=== PATIENT | female | born 1965 | race Caucasian/White ===

== ENCOUNTER 2016-06-08 13:55 | Emergency (ER) | payer SELFPAY ==
--- NOTE | 2016-06-08 14:20 | ER Document Report ---
ED Medical Screen (RME) - General Stated Complaint: FALL/BACK AND NECK PAIN Notes: 50 yo female c/o neck and back pain. pt slipped down several stairs a few days ago and tripped over dog. + hx/o chronic neck and back pain. + right leg radiculopathy. no bowel/bladder change. pt is new to area. Physical Exam - Vital signs Vitals: Temp Pulse Resp BP Pulse Ox 97.9 F 96 16 128/84 H 100 06/08/16 14:00 06/08/16 14:00 06/08/16 14:00 06/08/16 14:00 06/08/16 14:00 Course - Vital Signs Vital signs: Temp Pulse Resp BP Pulse Ox 97.9 F 96 16 128/84 H 100 06/08/16 14:00 06/08/16 14:00 06/08/16 14:00 06/08/16 14:00 06/08/16 14:00
--- NOTE | 2016-06-08 15:15 | ER Document Report ---
HPI - HPI Patient complains to provider of: fell few days ago, back hurts more than usual Onset: Other - not sure which day Onset/Duration: Worse Quality of pain: Achy Pain Level: 4 Context: 48 yo female moved here recently. No MD here yet. Slipped on stairs and fell onto her back making her chronic lumbar and cervical back arthrits worse. MR's in past, non surgical. No saddle anesthesia or radiculopathy. No fever. Associated Symptoms: None Exacerbated by: Sitting, Movement Relieved by: Denies Similar symptoms previously: Yes Recently seen / treated by doctor: No - ROS ROS below otherwise negative: Yes Systems Reviewed and Negative: Yes All other systems reviewed and negative - REPRODUCTIVE LMP: 05/30/ - DERM Skin Color: Normal Past Medical History - General Information source: Patient - Social History Smoking Status: Never Smoker Chew tobacco use (# tins/day): No Frequency of alcohol use: None Drug Abuse: None Lives with: Spouse/Significant other Family History: Reviewed & Not Pertinent Patient has suicidal ideation: No Patient has homicidal ideation: No Renal/ Medical History: Denies: Hx Peritoneal Dialysis Musculoskeltal Medical History: Reports Hx Arthritis - neck and low back Surgical Hx: Negative Vertical Provider Document - CONSTITUTIONAL Agree With Documented VS: Yes Exam Limitations: No Limitations General Appearance: No Apparent Distress - INFECTION CONTROL TRAVEL OUTSIDE OF THE [place] IN LAST 30 DAYS: No - HEENT HEENT: Normocephalic - NECK Neck: Supple - non tender c spine - RESPIRATORY Respiratory: Breath Sounds Normal, No Respiratory Distress O2 Sat by Pulse Oximetry: 100 - CARDIOVASCULAR Cardiovascular: Regular Rate, Regular Rhythm - GI/ABDOMEN Gastrointestinal: Abdomen Soft, Abdomen Non-Tender - BACK Back: Normal Inspection. negative: CVA Tenderness-Right, CVA Tenderness-Left - MUSCULOSKELETAL/EXTREMETIES Musculoskeletal/Extremeties: MAEW, FROM, Non-Tender - NEURO Level of Consciousness: Awake, Alert Motor/Sensory: No Motor Deficit, No Sensory Deficit Deep Tendon Reflexes: 2+ - sohail ankle and patellar - DERM Integumentary: Warm, Dry, No Rash Course - Re-evaluation Re-evalutation: 06/08/16 16:30 Urinalysis was normal. Refer patient to local M.D or her chronic pain. 06/08/16 16:30 - Vital Signs Vital signs: Temp Pulse Resp BP Pulse Ox 97.9 F 96 16 128/84 H 100 06/08/16 14:00 06/08/16 14:00 06/08/16 14:00 06/08/16 14:00 06/08/16 14:00 Discharge - Discharge Clinical Impression: exacerbation of chronic neck /back pain Fall Qualifiers: Encounter type: initial encounter Qualified Code(s): W19.XXXA - Unspecified fall, initial encounter Condition: Good Disposition: HOME, SELF-CARE Instructions: Arthritis ([facility]), Chronic Back Pain ([facility]), Low Back Pain ([facility]), Warm Packs ([facility]), Family Physicians / Practices, [facility] Additional Instructions: warm compress see pain management doctor to er if worse Prescriptions: Tramadol HCl [Ultram 50 mg Tablet] 50 mg PO ASDIR PRN #20 tablet PRN Reason: Referrals: JORDYN SHEPHERD MD [ACTIVE STAFF] - Follow up as needed
[2016-06-08 16:24] LABS: APPEARANCE,URINE CLEAR; BILIRUBIN,URINE NEGATIVE (NEGATIVE); GLUCOSE, URINE NEGATIVE (NEGATIVE); KETONES,URINE NEGATIVE (NEGATIVE); LEUKOCYTE ESTERASE,URINE NEGATIVE (NEGATIVE); NITRITE,URINE NEGATIVE (NEGATIVE); PROTEIN,URINE NEGATIVE (NEGATIVE); URINE SPECIFIC GRAVITY 1.006; UROBILINOGEN,URINE NEGATIVE mg/dL (<2.0)
[2016-06-08 17:05] VITALS: BP 133/90
== END 2016-06-08 16:55 | disposition home or self-care (01) ==
LOC: ER 13:55
DX: G89.29 Other chronic pain (principal); M54.9 Dorsalgia, unspecified; M54.2 Cervicalgia; W10.9XXA Fall (on) (from) unspecified stairs and steps, initial encounter; M47.9 Spondylosis, unspecified
CPT/HCPCS: 81001; 87086; 99283

== ENCOUNTER → 2016-06-20 | Outpatient (CLI) | payer OTHER ==
[2016-06-20 09:35] LABS: ABSOLUTE EOSINOPHILS # (AUTO) 0.1 10^3/uL (0.0-0.6); ABSOLUTE LYMPHOCYTES (AUTO) 1.1 10^3/uL (0.5-4.7); ABSOLUTE MONOCYTES (AUTO) 0.3 10^3/uL (0.1-1.4); ABSOLUTE NEUT (AUTO) 2.8 10^3/uL (1.7-8.2); BASOPHILS % (AUTO) 1.1 % (0-2); EOSINOPHILS % (AUTO) 3.1 % (0-6); HEMATOCRIT 32.2 % (36.0-47.0); HEMOGLOBIN 10.2 g/dL (12.0-15.5); HGB HCT DIFFERENCE -1.6; LYMPHOCYTES % (AUTO) 24.7 % (13-45); MEAN CORPUSCULAR HEMOGLOBIN 24.3 pg (27.0-33.4); MEAN CORPUSCULAR HGB CONC 31.7 g/dL (32.0-36.0); MEAN CORPUSCULAR VOLUME 77 fl (80-97); MONOCYTES % (AUTO) 6.5 % (3-13); RED BLOOD COUNT 4.21 10^6/uL (3.72-5.28); RED CELL DISTRIBUTION WIDTH 17.9 % (11.5-14.0); SEGMENTED NEUTROPHILS % (AUTO) 64.6 % (42-78); WHITE BLOOD COUNT 4.3 10^3/uL (4.0-10.5)
[2016-06-20 10:01] LABS: ALANINE AMINOTRANSFERASE 19 U/L (9-52); ALBUMIN 3.9 g/dL (3.5-5.0); ALKALINE PHOSPHATASE 54 U/L (38-126); ANION GAP 8 (5-19); ASPARTATE AMINO TRANSFERASE 16 U/L (14-36); BILIRUBIN,TOTAL 0.2 mg/dL (0.2-1.3); BLOOD UREA NITROGEN 13 mg/dL (7-20); C-REACTIVE PROTEIN 8.5 mg/L (<10.0); CALCIUM 9.3 mg/dL (8.4-10.2); CARBON DIOXIDE 26 mmol/L (22-30); CHLORIDE 105 mmol/L (98-107); CHOLESTEROL 160.08 mg/dL (0-200); CREATININE RESULT 0.82 mg/dL (0.52-1.25); Direct HDL 74 mg/dL (>40); GLUCOSE 104 mg/dL (75-110); POTASSIUM 4.8 mmol/L (3.6-5.0); SODIUM 139.4 mmol/L (137-145); TOTAL PROTEIN 6.8 g/dL (6.3-8.2); TRIGLYCERIDES 71 mg/dL (<150)
[2016-06-20 10:10] LABS: DIRECT LDL 71 mg/dL (<100)
[2016-06-20 10:18] LABS: ERYTHROCYTE SEDIMENTATION RATE 26 mm/hr (0-20)
== END ==
LOC: CCC 08:57
DX: M54.2 Cervicalgia (principal); M54.9 Dorsalgia, unspecified; F41.9 Anxiety disorder, unspecified; F32.9 Major depressive disorder, single episode, unspecified
CPT/HCPCS: 36415; 80053; 80061; 83036; 84443; 85025; 85652; 86038; 86140; 86430

== ENCOUNTER → 2016-06-23 | Outpatient (CLI) | payer OTHER ==
[2016-06-23 19:20] LABS: FERRITIN 6.11 ng/mL (6.2-137.0)
== END ==
LOC: CCC 15:54
DX: D50.9 Iron deficiency anemia, unspecified (principal)
CPT/HCPCS: 36415; 82728; 83540; 83550

== ENCOUNTER → 2016-07-13 | Outpatient (CLI) | payer OTHER | LOC: RAD 08:22 | DX: D50.9 Iron deficiency anemia, unspecified (principal) | CPT/HCPCS: 74249 ==

== ENCOUNTER 2016-07-22 10:13 | Emergency (ER) | payer OTHER ==
[2016-07-22] MEDS ORDERED: ACETAMINOPHEN 325 MG TABLET PO ONE (10:51)
--- NOTE | 2016-07-22 10:52 | ER Document Report ---
ED Medical Screen (RME) - General Stated Complaint: WEAKNESS Notes: Patient states she woke up this morning feeling weak, dizzy, and nauseous. States she does have a headache, pain level 3 out of 5. Patient has a history of anemia, ascites and depression, and chronic neck and back pain. Patient states she does have some nasal congestion. I have greeted and performed a rapid initial assessment of this patient. A comprehensive ED assessment and evaluation of the patient, analysis of test results and completion of the medical decision making process will be conducted by additional ED providers. TRAVEL OUTSIDE OF THE [place] IN LAST 30 DAYS: No - Related Data Allergies/Adverse Reactions: Sulfa (Sulfonamide Antibiotics) Allergy (Verified 07/22/16 10:47) Past Medical History Renal/ Medical History: Denies: Hx Peritoneal Dialysis Musculoskeltal Medical History: Reports Hx Arthritis - neck and low back Physical Exam - Vital signs Vitals: Temp Pulse Resp BP Pulse Ox 98.4 F 85 20 132/76 H 97 07/22/16 10:46 07/22/16 10:46 07/22/16 10:46 07/22/16 10:46 07/22/16 10:46 - Notes Notes: gait steady in triage, speech normal Course - Vital Signs Vital signs: Temp Pulse Resp BP Pulse Ox 98.4 F 85 20 132/76 H 97 07/22/16 10:46 07/22/16 10:46 07/22/16 10:46 07/22/16 10:46 07/22/16 10:46
--- NOTE | 2016-07-22 12:11 | ER Document Report ---
ED Dizziness/Weakness - General Mode of Arrival: Ambulatory Information source: Patient TRAVEL OUTSIDE OF THE [place] IN LAST 30 DAYS: No - HPI Patient complains to provider of: Dizziness, Weakness Onset: This morning - 829 Onset/Duration: Sudden, Persistent Associated symptoms: Headache, Nausea Exacerbated by: Movement of head <HUGO LANGLEY - Last Filed: 07/22/16 12:34> <IRLANDA BURRIS - Last Filed: 07/22/16 14:26> - General Chief Complaint: Dizziness Stated Complaint: WEAKNESS Notes: Patient is a 51-year-old female presenting to the emergency department concerned of dizziness and weakness onset upon waking up this morning at approximately 08:30. Patient also states that this is making her nauseous and she has a headache. Patient states "I just feel out of sorts." Patient has no other complaints at this time. (HUGO LANGLEY) - Related Data Allergies/Adverse Reactions: Sulfa (Sulfonamide Antibiotics) Allergy (Verified 07/22/16 10:47) Past Medical History - General Information source: Patient, [facility] Records - Social History Smoking Status: Never Smoker Chew tobacco use (# tins/day): No Frequency of alcohol use: None Drug Abuse: None Family History: Reviewed & Not Pertinent Patient has suicidal ideation: No Patient has homicidal ideation: No Renal/ Medical History: Denies: Hx Peritoneal Dialysis Musculoskeltal Medical History: Reports Hx Arthritis - neck and low back Psychiatric Medical History: Reports: Hx Depression Past Surgical History: Reports: Hx Section, Hx Cholecystectomy <HUGO LANGLEY - Last Filed: 07/22/16 12:34> Review of Systems - Review of Systems Constitutional: See HPI, Weakness EENT: No symptoms reported Cardiovascular: See HPI, Dizziness Respiratory: No symptoms reported Gastrointestinal: See HPI, Nausea Genitourinary: No symptoms reported Female Genitourinary: No symptoms reported Musculoskeletal: No symptoms reported Skin: No symptoms reported Hematologic/Lymphatic: No symptoms reported Neurological/Psychological: See HPI, Headaches -: Yes All other systems reviewed and negative <HUGO LANGLEY - Last Filed: 07/22/16 12:34> Physical Exam - General General appearance: Alert - HEENT Head: Normocephalic, Atraumatic Eyes: Normal, Other - Lateral gaze nystagmus. Dizziness made worse with head movement. Pupils: PERRL - Respiratory Respiratory status: No respiratory distress Chest status: Nontender Breath sounds: Normal Chest palpation: Normal - Cardiovascular Rhythm: Regular Heart sounds: Normal auscultation Murmur: No - Abdominal Inspection: Normal Bowel sounds: Normal Tenderness: Nontender - Back Back: Normal, Nontender - Extremities General upper extremity: Normal inspection, Nontender General lower extremity: Normal inspection, Nontender - Neurological Neuro grossly intact: Yes Cognition: Normal Orientation: AAOx4 Dahlgren Coma Scale Eye Opening: Spontaneous Dahlgren Coma Scale Verbal: Oriented Dandre Coma Scale Motor: Obeys Commands Dahlgren Coma Scale Total: 15 Speech: Normal - Psychological Associated symptoms: Normal affect, Normal mood - Skin Skin Temperature: Warm Skin Moisture: Dry Skin Color: Normal <HUGO LANGLEY - Last Filed: 07/22/16 12:34> Course - Laboratory Result Diagrams: 07/22/16 11:50 07/22/16 11:50 <HUGO LANGLEY - Last Filed: 07/22/16 12:34> - Laboratory Result Diagrams: 07/22/16 11:50 07/22/16 11:50 <IRLANDA BURRIS - Last Filed: 07/22/16 14:26> - Re-evaluation Re-evalutation: 07/22/16 14:24 Patient is much improved after the Antivert. The nystagmus has resolved. She is able to look up and down the back and forth quickly without provoking the dizziness that occurred earlier. (IRLANDA BURRIS) - Vital Signs Vital signs: Temp Pulse Resp BP Pulse Ox 98.4 F 85 20 132/76 H 97 07/22/16 10:46 07/22/16 11:15 07/22/16 11:15 07/22/16 11:15 07/22/16 11:15 - Laboratory Laboratory results interpreted by me: 07/22/16 07/22/16 11:50 12:15 WBC 3.4 L Hgb 11.2 L Hct 34.6 L MCV 78 L MCH 25.3 L RDW 21.2 H Urine Blood LARGE H Discharge <HUGO LANGLEY - Last Filed: 07/22/16 12:34> <IRLANDA BURRIS - Last Filed: 07/22/16 14:26> - Discharge Clinical Impression: Vertigo Condition: Stable Disposition: HOME, SELF-CARE Additional Instructions: Vertigo: You have experienced an episode of vertigo -- a whirling dizziness which may be accompanied by nausea and vomiting or staggering. Vertigo is often caused by an irritation of the inner ear, in which case it is called labyrinthitis. It can also be a symptom of a degenerating inner ear, nerve damage, or brain injury. Your physician has evaluated you to determine whether any further testing is necessary. Vertigo is often treated with dramamine or meclizine. These medications are helpful, but stronger medication may be needed if you are vomiting. Rest in bed. You should not drive or operate machinery until completely better. It may take one to three weeks for recovery. If there are new symptoms, such as decreased hearing or vision, severe headache, weakness or faintness, or confusion, call the physician. Prescriptions: Meclizine HCl [Antivert 25 mg Tablet] 25 mg PO TID PRN #25 tablet PRN Reason: Scribe Attestation: 07/22/16 14:26 I personally performed the services described in the documentation, reviewed and edited the documentation which was dictated to the scribe in my presence, and it accurately records my words and actions. (IRLANDA BURRIS) Scribe Documentation - Scribe Written by Leann:: Hugo Langley 07/22/2016 1211 acting as scribe for :: Adam <HUGO LANGLEY - Last Filed: 07/22/16 12:34>
[2016-07-22 12:23] LABS: ABSOLUTE EOSINOPHILS # (AUTO) 0.1 10^3/uL (0.0-0.6); ABSOLUTE MONOCYTES (AUTO) 0.3 10^3/uL (0.1-1.4); BASOPHILS % (AUTO) 0.9 % (0-2); EOSINOPHILS % (AUTO) 3.1 % (0-6); HEMATOCRIT 34.6 % (36.0-47.0); HEMOGLOBIN 11.2 g/dL (12.0-15.5); MEAN CORPUSCULAR HEMOGLOBIN 25.3 pg (27.0-33.4); MEAN CORPUSCULAR HGB CONC 32.3 g/dL (32.0-36.0); MEAN CORPUSCULAR VOLUME 78 fl (80-97); MONOCYTES % (AUTO) 8.5 % (3-13); RED BLOOD COUNT 4.44 10^6/uL (3.72-5.28); RED CELL DISTRIBUTION WIDTH 21.2 % (11.5-14.0); SEGMENTED NEUTROPHILS % (AUTO) 57.5 % (42-78); WHITE BLOOD COUNT 3.4 10^3/uL (4.0-10.5)
[2016-07-22] MEDS ORDERED: MECLIZINE HCL 25 MG TABLET PO ONE (12:33)
[2016-07-22 12:41] LABS: AMORPHOUS SEDIMENT,URINE 1+ /HPF; APPEARANCE,URINE CLOUDY; BILIRUBIN,URINE NEGATIVE (NEGATIVE); GLUCOSE, URINE NEGATIVE (NEGATIVE); KETONES,URINE NEGATIVE (NEGATIVE); LEUKOCYTE ESTERASE,URINE NEGATIVE (NEGATIVE); NITRITE,URINE NEGATIVE (NEGATIVE); PROTEIN,URINE NEGATIVE (NEGATIVE); URINE SPECIFIC GRAVITY 1.011; UROBILINOGEN,URINE NEGATIVE mg/dL (<2.0)
[2016-07-22 12:48] LABS: ALANINE AMINOTRANSFERASE 22 U/L (9-52); ALKALINE PHOSPHATASE 70 U/L (38-126); ANION GAP 10 (5-19); ASPARTATE AMINO TRANSFERASE 16 U/L (14-36); BILIRUBIN,DIRECT 0.1 mg/dL (0.0-0.4); BILIRUBIN,TOTAL 0.2 mg/dL (0.2-1.3); BLOOD UREA NITROGEN 13 mg/dL (7-20); CALCIUM 9.8 mg/dL (8.4-10.2); CARBON DIOXIDE 30 mmol/L (22-30); CHLORIDE 101 mmol/L (98-107); CREATININE RESULT 0.71 mg/dL (0.52-1.25); GLUCOSE 96 mg/dL (75-110); LIPASE 122.3 U/L (23-300); POTASSIUM 4.5 mmol/L (3.6-5.0); SODIUM 141.2 mmol/L (137-145); TOTAL PROTEIN 6.6 g/dL (6.3-8.2)
[2016-07-22 14:59] VITALS: BP 111/72
== END 2016-07-22 15:02 | disposition home or self-care (01) ==
LOC: ER 10:13
DX: H55.00 Unspecified nystagmus (principal); R42 Dizziness and giddiness; R53.1 Weakness; R11.0 Nausea; R51 Headache; Z88.2 Allergy status to sulfonamides
CPT/HCPCS: 36415; 80053; 81001; 83690; 84702; 85025; 99283

== ENCOUNTER → 2016-08-10 | Outpatient (CLI) | payer OTHER | LOC: WI 09:19 | DX: Z12.31 Encounter for screening mammogram for malignant neoplasm of breast (principal) | CPT/HCPCS: 77067; G0202 ==

== ENCOUNTER → 2016-10-26 | Outpatient (CLI) | payer OTHER ==
[2016-10-26 17:09] LABS: ABSOLUTE EOSINOPHILS # (AUTO) 0.2 10^3/uL (0.0-0.6); ABSOLUTE LYMPHOCYTES (AUTO) 1.4 10^3/uL (0.5-4.7); ABSOLUTE MONOCYTES (AUTO) 0.4 10^3/uL (0.1-1.4); ABSOLUTE NEUT (AUTO) 3.7 10^3/uL (1.7-8.2); BASOPHILS % (AUTO) 0.6 % (0-2); EOSINOPHILS % (AUTO) 2.7 % (0-6); HEMATOCRIT 39.4 % (36.0-47.0); HGB HCT DIFFERENCE -0.4; LYMPHOCYTES % (AUTO) 24.9 % (13-45); MEAN CORPUSCULAR HEMOGLOBIN 28.3 pg (27.0-33.4); MEAN CORPUSCULAR HGB CONC 32.9 g/dL (32.0-36.0); MEAN CORPUSCULAR VOLUME 86 fl (80-97); MONOCYTES % (AUTO) 7.3 % (3-13); RED BLOOD COUNT 4.59 10^6/uL (3.72-5.28); RED CELL DISTRIBUTION WIDTH 14.9 % (11.5-14.0); SEGMENTED NEUTROPHILS % (AUTO) 64.5 % (42-78); WHITE BLOOD COUNT 5.7 10^3/uL (4.0-10.5)
== END ==
LOC: CCC 16:19
DX: D50.9 Iron deficiency anemia, unspecified (principal)
CPT/HCPCS: 36415; 82728; 83540; 83550; 85025

== ENCOUNTER → 2016-12-14 | Outpatient (CLI) | payer OTHER ==
--- NOTE | 2016-12-14 15:15 | RADIOLOGY REPORT (SQ) ---
EXAM DESCRIPTION: HIP RIGHT AP/LATERAL COMPLETED DATE/TIME: 12/14/2016 1:06 pm REASON FOR STUDY: RIGHT HIP PAIN (M25.551) M25.551 PAIN IN RIGHT HIP COMPARISON: None. NUMBER OF VIEWS: Two views. TECHNIQUE: AP pelvis and additional frog-leg view of the right hip. LIMITATIONS: None. FINDINGS: MINERALIZATION: Normal. RIGHT HIP: No fracture or dislocation. No worrisome bone lesions. No significant hip joint space na rrowing. Very mild acetabular rim bony spurring. LEFT HIP: No fracture or dislocation. No worrisome bone lesions. No significant left hip joint spac e narrowing. Mild acetabular rim bony spurring. PUBIS AND ISCHIUM: No fracture. PELVIS: No fracture. SACRUM: No fracture or dislocation. No worrisome bone lesions. LOWER LUMBAR SPINE: Lower lumbar facet arthropathy at L4-5 and L5-S1 SOFT TISSUES: No findings. OTHER: No other significant finding. IMPRESSION: No acute fracture. No high-grade joint space narrowing or bulky bony spurring right hip TECHNICAL DOCUMENTATION: JOB ID: [id number]- All Rights Reserved
== END ==
LOC: RAD 12:31
DX: M25.551 Pain in right hip (principal)

== ENCOUNTER → 2017-03-20 | Outpatient (CLI) | payer OTHER ==
--- NOTE | 2017-03-20 13:26 | RADIOLOGY REPORT (SQ) ---
EXAM DESCRIPTION: MRIRLJ WO COMPLETED DATE/TIME: 03/20/2017 10:49 am REASON FOR STUDY: PERSISTENT R HIP PAIN COMPARISON: Radiographs from November. TECHNIQUE: Noncontrast multiplanar MR imaging. Sequences include wide field of view pelvis and focu sed hip of interest. Fat sensitive, water sensitive, and cartilage sensitive sequences. Specific hip of interest: Right LIMITATIONS: None. FINDINGS: MARROW SIGNAL: Normal, no evidence of replacement, occult fracture or suspicious bone lesi on in the visualized lumbar spine, pelvis and proximal femurs. SPECIFIC HIP OF INTEREST: No effusion. Appropriate acetabular coverage. Normal sphericity of the fem oral head. No avascular necrosis or reactive marrow changes. Small bone island in the posterior diego tabulum. No suspicious lesions. No focal hyaline cartilage defects or subchondral cysts appreciated . No bulky osteophytes suspect tear of the superior labrum. No significant paralabral cyst formatio n. No regional mass, bursitis or muscle tear. OPPOSITE HIP: No evidence of effusion or lesion. Joint space relatively preserved on non dedicated e valuation. Small hyperintense T2 probable cyst along the proximal vastus muscle. Suspect a tiny erika glion here. No significant muscle tear or bursitis detected. REMAINDER OF THE OSSEOUS PELVIS: SI joints normal. Symphasis pubis intact. No Avulsion injury evide nt. INTRA- AND EXTRAPELVIC SOFT TISSUES: Numerous nabothian cysts related to the cervix. No suspicious p elvic mass or fluid. Bladder looks normal. No inguinal adenopathy or hernia. IMPRESSION: 1. Suspect right hip labral tear. Right hip otherwise looks relatively intact.
== END ==
LOC: RAD 09:59
DX: M25.551 Pain in right hip (principal)

== ENCOUNTER → 2017-08-08 | Outpatient (CLI) | payer OTHER ==
[2017-08-08 11:24] LABS: ABSOLUTE EOSINOPHILS # (AUTO) 0.2 10^3/uL (0.0-0.6); ABSOLUTE LYMPHOCYTES (AUTO) 1.3 10^3/uL (0.5-4.7); ABSOLUTE MONOCYTES (AUTO) 0.3 10^3/uL (0.1-1.4); ABSOLUTE NEUT (AUTO) 4.1 10^3/uL (1.7-8.2); BASOPHILS % (AUTO) 0.6 % (0-2); EOSINOPHILS % (AUTO) 3.7 % (0-6); HEMATOCRIT 38.8 % (36.0-47.0); HEMOGLOBIN 12.7 g/dL (12.0-15.5); MEAN CORPUSCULAR HEMOGLOBIN 27.5 pg (27.0-33.4); MEAN CORPUSCULAR HGB CONC 32.7 g/dL (32.0-36.0); MEAN CORPUSCULAR VOLUME 84 fl (80-97); MONOCYTES % (AUTO) 5.4 % (3-13); PLATELET COUNT 308 10^3/uL (150-450); RED BLOOD COUNT 4.62 10^6/uL (3.72-5.28); RED CELL DISTRIBUTION WIDTH 15.5 % (11.5-14.0); SEGMENTED NEUTROPHILS % (AUTO) 69.3 % (42-78); TOTAL CELLS COUNTED % (AUTO) 100 %
== END ==
LOC: OD 10:46
DX: N92.4 Excessive bleeding in the premenopausal period (principal); Z86.2 Personal history of diseases of the blood and blood-forming organs and certain disorders involving the immune mechanism
CPT/HCPCS: 36415; 85025

== ENCOUNTER → 2017-08-17 | Outpatient (CLI) | payer OTHER ==
--- NOTE | 2017-08-17 12:35 | RADIOLOGY REPORT (SQ) ---
EXAM DESCRIPTION: U/S NON-OB PELVIS TV W/O DOP COMPLETED DATE/TIME: 08/17/2017 10:59 am REASON FOR STUDY: N92.4 EXCESSIVE BLEEDING IN THE PREMENOPAUSAL PERIOD N92.4 EXCESSIVE BLEEDING IN THE PREMENOPAUSAL PERIOD COMPARISON: None. TECHNIQUE: Dynamic and static grayscale images acquired of the pelvis via transvaginal approach and recorded on PACS. Additional selected color Doppler and spectral images recorded. LIMITATIONS: None. FINDINGS: UTERUS: There is the appearance of a 5.2 x 4.2 x 4.1 cm fundal uterine fibroid. ENDOMETRIAL STRIPE: Not able to be seen. CERVIX: 3 cm. Nabothian cysts are present. RIGHT ADNEXUM: No abnormal masses. RIGHT OVARY AND DOPPLER: Ovary not seen. . LEFT ADNEXUM: No abnormal masses. LEFT OVARY AND DOPPLER: Ovary not seen. . FREE FLUID: None noted. OTHER: No other significant finding. MEASUREMENTS: UTERUS: 11 x 5.3 x 4.2 cm. ENDOMETRIAL STRIPE: Not seen. RIGHT OVARY: Not seen. LEFT OVARY: Not seen. IMPRESSION: Uterine fibroid. Nabothian cysts. TECHNICAL DOCUMENTATION: JOB ID: [id number] [employer]- All Rights Reserved Reading location - IP/workstation name: [email or web address]
== END ==
LOC: WI 11:19
DX: N92.4 Excessive bleeding in the premenopausal period (principal); D25.9 Leiomyoma of uterus, unspecified; N88.8 Other specified noninflammatory disorders of cervix uteri
CPT/HCPCS: 76830

== ENCOUNTER → 2017-12-29 | Outpatient (CLI) | payer OTHER ==
[2017-12-29 11:40] LABS: ABSOLUTE EOSINOPHILS # (AUTO) 0.2 10^3/uL (0.0-0.6); ABSOLUTE LYMPHOCYTES (AUTO) 1.1 10^3/uL (0.5-4.7); ABSOLUTE MONOCYTES (AUTO) 0.2 10^3/uL (0.1-1.4); ABSOLUTE NEUT (AUTO) 3.9 10^3/uL (1.7-8.2); BASOPHILS % (AUTO) 0.8 % (0-2); EOSINOPHILS % (AUTO) 3.7 % (0-6); HEMATOCRIT 39.6 % (36.0-47.0); LYMPHOCYTES % (AUTO) 20.2 % (13-45); MEAN CORPUSCULAR HEMOGLOBIN 27.2 pg (27.0-33.4); MEAN CORPUSCULAR HGB CONC 32.7 g/dL (32.0-36.0); MEAN CORPUSCULAR VOLUME 83 fl (80-97); MONOCYTES % (AUTO) 4.1 % (3-13); PLATELET COUNT 361 10^3/uL (150-450); RED BLOOD COUNT 4.76 10^6/uL (3.72-5.28); RED CELL DISTRIBUTION WIDTH 15.7 % (11.5-14.0); SEGMENTED NEUTROPHILS % (AUTO) 71.2 % (42-78); TOTAL CELLS COUNTED % (AUTO) 100 %; WHITE BLOOD COUNT 5.5 10^3/uL (4.0-10.5)
[2017-12-29 12:10] LABS: ALANINE AMINOTRANSFERASE 23 U/L (9-52); ALBUMIN 4.5 g/dL (3.5-5.0); ALKALINE PHOSPHATASE 89 U/L (38-126); ANION GAP 11 (5-19); ASPARTATE AMINO TRANSFERASE 20 U/L (14-36); BILIRUBIN,DIRECT 0.3 mg/dL (0.0-0.4); BILIRUBIN,TOTAL 0.6 mg/dL (0.2-1.3); BLOOD UREA NITROGEN 12 mg/dL (7-20); CALCIUM 9.6 mg/dL (8.4-10.2); CARBON DIOXIDE 25 mmol/L (22-30); CHLORIDE 102 mmol/L (98-107); CHOLESTEROL 204.63 mg/dL (0-200); GLUCOSE 95 mg/dL (75-110); POTASSIUM 4.4 mmol/L (3.6-5.0); SODIUM 138.4 mmol/L (137-145); TOTAL PROTEIN 7.8 g/dL (6.3-8.2); TRIGLYCERIDES 78 mg/dL (<150)
[2017-12-29 12:21] LABS: DIRECT LDL 94 mg/dL (<100)
== END ==
LOC: CCC 10:24
DX: Z13.9 Encounter for screening, unspecified (principal)
CPT/HCPCS: 36415; 80053; 80061; 83036; 84443; 85025

== ENCOUNTER → 2018-03-20 | Outpatient (CLI) | payer OTHER ==
[2018-03-20 15:57] LABS: FREE T3 3.15 pg/mL (2.77-5.27); FREE T4 (FREE THYROXINE) 0.83 ng/dL (0.78-2.19)
[2018-03-20 16:10] LABS: THYROID STIMULATING HORMONE 5.17 uIU/mL (0.47-4.68)
== END ==
LOC: CCC 14:31
DX: E03.9 Hypothyroidism, unspecified (principal)
CPT/HCPCS: 36415; 84439; 84443; 84481

== ENCOUNTER → 2018-10-01 | Outpatient (CLI) | payer OTHER ==
[2018-10-01 12:14] LABS: FREE T3 4.09 pg/mL (2.77-5.27); FREE T4 (FREE THYROXINE) 0.84 ng/dL (0.78-2.19)
[2018-10-01 12:27] LABS: THYROID STIMULATING HORMONE 11.7 uIU/mL (0.47-4.68)
== END ==
LOC: CCC 10:31
DX: R94.6 Abnormal results of thyroid function studies (principal)
CPT/HCPCS: 36415; 84439; 84443; 84481

== ENCOUNTER → 2018-11-07 | Outpatient (CLI) | payer OTHER ==
--- NOTE | 2018-11-07 16:23 | RADIOLOGY REPORT (SQ) ---
EXAM DESCRIPTION: U/S THYROID/SFT TISS HD NECK COMPLETED DATE/TIME: 11/07/2018 3:39 pm REASON FOR STUDY: E03.9 HYPOTHYROIDISM, UNSPECIFIED E03.9 HYPOTHYROIDISM, UNSPECIFIED COMPARISON: None. TECHNIQUE: Dynamic and static torre-scale images acquired of the thyroid gland. Selected additional c olor/power Doppler images recorded. All images stored to PACS. LIMITATIONS: None. FINDINGS: RIGHT LOBE: Normal size. Heterogeneous echotexture. 9 x 11 x 7 mm hypoechoic nodule, wid er than tall. No calcifications. LEFT LOBE: Normal size. Homogeneous echotexture. No cystic or solid masses. ISTHMUS: Normal size. Homogeneous echotexture. No cystic or solid masses. OTHER: No other significant finding. IMPRESSION: Diffusely heterogeneous gland. 11 mm solid nodule right lobe. Low suspicion. TECHNICAL DOCUMENTATION: JOB ID: [id number] [employer]- All Rights Reserved Reading location - IP/workstation name: [email or web address]
== END ==
LOC: RAD 15:02
DX: E06.3 Autoimmune thyroiditis (principal); E03.9 Hypothyroidism, unspecified
CPT/HCPCS: 76536

== ENCOUNTER → 2018-12-19 | Outpatient (CLI) | payer OTHER | LOC: CCC 07:43 | DX: E05.90 Thyrotoxicosis, unspecified without thyrotoxic crisis or storm (principal) | CPT/HCPCS: 36415; 84443 ==

== ENCOUNTER 2019-02-21 20:14 | Emergency (ER) | payer OTHER ==
--- NOTE | 2019-02-21 20:48 | ER Document Report ---
ED Medical Screen (RME) - General Chief Complaint: Fall Stated Complaint: RIGHT SHOULDER/KNEE PAIN Time Seen by Provider: 02/21/19 20:44 Primary Care Provider: CHRIS CURRY [Primary Care Provider] - Follow up as needed Mode of Arrival: Ambulatory Information source: Patient Notes: 53-year-old female presented to ED for pain in her right shoulder. She states she fell one day last week but she is not sure which day. She states she tried to catch herself with her hand and landed on the hand injuring her shoulder. She says she has chronic pain in this shoulder due to arthritis in her neck and 3 pinched nerves. She states the pain always goes down into her hand. She states since she fell last week that it feels like her shoulder is slipping out of the joint. She has the pain in her shoulder down her hand. Patient states she took some tramadol about 2:00 it would like Tylenol at this time. I have greeted and performed a rapid initial assessment of this patient. A comprehensive ED assessment and evaluation of the patient, analysis of test results and completion of medical decision making process will be conducted by an additional ED providers. TRAVEL OUTSIDE OF THE [place] IN LAST 30 DAYS: No - Related Data Allergies/Adverse Reactions: Sulfa (Sulfonamide Antibiotics) Allergy (Verified 02/21/19 20:36) Past Medical History Renal/ Medical History: Denies: Hx Peritoneal Dialysis Musculoskeltal Medical History: Reports Hx Arthritis - neck and low back Psychiatric Medical History: Reports: Hx Depression Past Surgical History: Reports: Hx Section, Hx Cholecystectomy, Hx Tonsillectomy - Immunizations Hx Diphtheria, Pertussis, Tetanus Vaccination: Yes Physical Exam - Vital signs Vitals: Temp Pulse Resp BP Pulse Ox 97.9 F 89 16 119/76 100 02/21/19 20:23 02/21/19 20:23 02/21/19 20:23 02/21/19 20:23 02/21/19 20:23 Course - Vital Signs Vital signs: Temp Pulse Resp BP Pulse Ox 97.9 F 89 16 119/76 100 02/21/19 20:23 02/21/19 20:23 02/21/19 20:23 02/21/19 20:23 02/21/19 20:23 Doctor's Discharge - Discharge Referrals: CHRIS CURRY [Primary Care Provider] - Follow up as needed
[2019-02-21] MEDS ORDERED: ACETAMINOPHEN 325 MG TABLET PO ONE (20:49)
--- NOTE | 2019-02-21 21:50 | RADIOLOGY REPORT (SQ) ---
3 VIEWS OF RIGHT SHOULDER EXAM DATE: 02/21/2019 8:49 PM CDT HISTORY: Shoulder pain and fall. COMPARISON: None. FINDINGS: No acute fracture or dislocation is seen. The joint spaces are preserved. No radiopaque foreign body is identified. IMPRESSION: No acute fracture or malalignment.
[2019-02-22] MEDS ORDERED: HYDROCODONE/ACETAMINOPHEN 10-325 MG TABLET PO ONE (01:03)
--- NOTE | 2019-02-22 01:07 | ER Document Report ---
HPI - HPI Patient complains to provider of: right shoulder pain Time Seen by Provider: 02/21/19 20:44 Pain Level: 3 Context: Patient is a 53-year-old female presents to the emergency department for chronic right shoulder pain. Patient voices she does have a history with nerve impingement in her neck. States she typically gets tingling sensation in her right upper extremity. States a few days ago she did fall on her right upper extremity. States she is worried that she reinjured her shoulder. Patient is complaining of pain right anterior shoulder. She is denying any pain in her right wrist, right elbow, right forearm, right humerus. Patient voices no numbness or tingling at this point upon my assessment. Patient's denying any other complaints. - REPRODUCTIVE Reproductive: DENIES: : - MUSCULOSKELETAL Musculoskeletal: REPORTS: Extremity pain - RIGHT ARM Past Medical History - General Information source: Patient - Social History Smoking Status: Never Smoker Chew tobacco use (# tins/day): No Frequency of alcohol use: None Drug Abuse: None Family History: Reviewed & Not Pertinent Patient has suicidal ideation: Yes - pt ben active plan, reports she sees a counselor, denies active SI Patient has homicidal ideation: No Renal/ Medical History: Denies: Hx Peritoneal Dialysis Musculoskeletal Medical History: Reports Hx Arthritis - neck and low back Psychiatric Medical History: Reports: Hx Depression Past Surgical History: Reports: Hx Section, Hx Cholecystectomy, Hx Tonsillectomy - Immunizations Hx Diphtheria, Pertussis, Tetanus Vaccination: Yes Vertical Provider Document - CONSTITUTIONAL Agree With Documented VS: Yes Notes: GENERAL: Alert, interacts well. No acute distress. HEAD: Normocephalic, atraumatic. EYES: Pupils equal, round, and reactive to light. Extraocular movements intact. ENT: Oral mucosa moist, tongue midline. NECK: Full range of motion. Supple. Trachea midline. LUNGS: Clear to auscultation bilaterally, no wheezes, rales, or rhonchi. No respiratory distress. HEART: Regular rate and rhythm. No murmur ABDOMEN: Soft, non-tender. Non-distended. Bowel sounds present in all 4 quadrants. EXTREMITIES: Moves all 4 extremities spontaneously. No edema, normal radial and dorsalis pedis pulses bilaterally. No cyanosis. Decreased range of motion right shoulder secondary due to pain. No pain palpation of right wrist, right elbow. Full range of motion right wrist, right elbow. Pain anterior right shoulder. No pain posterior right shoulder. BACK: no cervical, thoracic, lumbar midline tenderness. No saddle anesthesia, normal distal neurovascular exam. NEUROLOGICAL: Alert and oriented x3. Normal speech. cranial nerves II through XII grossly intact PSYCH: Normal affect, normal mood. SKIN: Warm, dry, normal turgor. No rashes or lesions noted. - INFECTION CONTROL TRAVEL OUTSIDE OF THE [place] IN LAST 30 DAYS: No Course - Re-evaluation Re-evalutation: 02/22/19 01:05 Shoulder X-Ray 02/21/19 20:49 IMPRESSION: No acute fracture or malalignment. Discussed with patient her need to follow-up with orthopedics for MRI. Discussed use of [id number] pain medication following up at [facility]. Patient voices understanding, stable for discharge. - Vital Signs Vital signs: Temp Pulse Resp BP Pulse Ox 97.7 F 76 17 115/69 99 02/22/19 00:13 02/22/19 00:13 02/22/19 00:13 02/22/19 00:13 02/22/19 00:13 Discharge - Discharge Clinical Impression: Shoulder pain, right Qualifiers: Chronicity: acute Qualified Code(s): M25.511 - Pain in right shoulder Condition: Stable Disposition: HOME, SELF-CARE Instructions: Shoulder Injury ([facility]), Exercise Program for the Shoulder ([facility]) Additional Instructions: As we discussed you have been seen and treated in the emergency department for an injury to your right shoulder. Your x-rays revealed no signs of broken bones. Please make sure you take your [id number] medications as prescribed. Please also make sure you follow-up with orthopedics. Phone numbers will be provided. Return to the emergency room for any concerns. Forms: Return to Work Referrals: ON LICENSE OF [facility] [Primary Care Provider] - Follow up as needed WAQAS MORE MD [ACTIVE PROVISIONAL STAFF] - Follow up as needed
[2019-02-22 01:30] VITALS: BP 121/67
== END 2019-02-22 01:29 | disposition home or self-care (01) ==
LOC: ER 20:14
DX: M25.511 Pain in right shoulder (principal); W10.9XXA Fall (on) (from) unspecified stairs and steps, initial encounter

== ENCOUNTER → 2019-03-12 | Outpatient (CLI) | payer OTHER ==
--- NOTE | 2019-03-12 16:56 | RADIOLOGY REPORT (SQ) ---
EXAM DESCRIPTION: MRI RT UPPER JOINT WITHOUT COMPLETED DATE/TIME: 03/12/2019 11:23 am REASON FOR STUDY: M25.511 PAIN IN RIGHT SHOULDER M25.511 PAIN IN RIGHT SHOULDER COMPARISON: Right shoulder films 02/21/2019 TECHNIQUE: Non arthrogram right shoulder images acquired and stored on PACS. Multiplanar imaging to include fat sensitive sequences such as T1, water sensitive sequences such as FST2/STIR, cartilage se nsitive sequences such as FSPD/gradient-echo sequences. LIMITATIONS: None. FINDINGS: BONE MARROW AND CORTEX: Small subcortical cysts in the greater tuberosity right humeral he ad on axial image 7 and 8 JOINT OR BURSAL EFFUSION: No significant glenohumeral joint fluid. Trace fluid is subacromial/subdel toid bursa GLENO-HUMERAL ARTICULATION: Normal articulation. No subluxation. No cystic change. Mild chondromalac ia. ACROMION AND AC JOINT: Type 4 acromion with mild AC joint hypertrophy on sagittal image 12-14. No si gnificant impingement on the subacromial space. Trace fluid in the subacromial/subdeltoid bursa ROTATOR CUFF AND INTERVAL: A partial thickness undersurface tear of the anterior supraspinatus tendon is present on sagittal image 4 and coronal image 10. Remainder of the supra and infraspinatus tendo ns are diffusely thickened and high in signal from tendinopathy. Subscapularis is intact. No rotator interval tear. No rotator interval thickening to suggest adhesive capsulitis. LABRUM AND BICEPS LABRAL COMPLEX: Intra-articular long head biceps tendinopathy, increased in signa l. No gross superior labral tear or paralabral cyst REMAINDER OF LABRUM AND IGHL : No gross tear or paralabral cyst formation. Labral evaluation is less than optimal without joint distention. No thickening of IGHL to suggest adhesive capsulitis. PERIARTICULAR AND ADJACENT SOFT TISSUES: No masses or abnormal nodes. OTHER: No other significant finding. IMPRESSION: Diffuse tendinopathy throughout the supra and infraspinatus tendons with a small partial thickness undersurface tear anterior edge, supraspinatus tendon Intra-articular long head biceps tendinopathy TECHNICAL DOCUMENTATION: JOB ID: [id number] [employer]- All Rights Reserved Reading location - IP[facility]workstation name: [email or web address]
== END ==
LOC: RAD 10:42
PROVIDERS: ATTEND Internal Medicine
DX: M75.111 Incomplete rotator cuff tear or rupture of right shoulder, not specified as traumatic (principal); M25.511 Pain in right shoulder; Z91.81 History of falling

== ENCOUNTER → 2019-06-21 | Outpatient (CLI) | payer OTHER ==
[2019-06-21 16:37] LABS: ABSOLUTE EOSINOPHILS # (AUTO) 0.2 10^3/uL (0.0-0.6); ABSOLUTE LYMPHOCYTES (AUTO) 1.5 10^3/uL (0.5-4.7); ABSOLUTE MONOCYTES (AUTO) 0.3 10^3/uL (0.1-1.4); ABSOLUTE NEUT (AUTO) 2.4 10^3/uL (1.7-8.2); BASOPHILS % (AUTO) 0.8 % (0-2); EOSINOPHILS % (AUTO) 4.7 % (0-6); HEMATOCRIT 36.5 % (36.0-47.0); HEMOGLOBIN 11.9 g/dL (12.0-15.5); LYMPHOCYTES % (AUTO) 32.6 % (13-45); MEAN CORPUSCULAR HGB CONC 32.7 g/dL (32.0-36.0); MEAN CORPUSCULAR VOLUME 80 fl (80-97); MONOCYTES % (AUTO) 7.7 % (3-13); PLATELET COUNT 337 10^3/uL (150-450); RED CELL DISTRIBUTION WIDTH 17.7 % (11.5-14.0); SEGMENTED NEUTROPHILS % (AUTO) 54.2 % (42-78); TOTAL CELLS COUNTED % (AUTO) 100 %; WHITE BLOOD COUNT 4.5 10^3/uL (4.0-10.5)
[2019-06-21 16:55] LABS: ANION GAP 7 (5-19); BLOOD UREA NITROGEN 16 mg/dL (7-20); CALCIUM 9.5 mg/dL (8.4-10.2); CARBON DIOXIDE 28 mmol/L (22-30); CHLORIDE 102 mmol/L (98-107); GLUCOSE 90 mg/dL (75-110); POTASSIUM 5.1 mmol/L (3.6-5.0)
[2019-06-21 17:19] LABS: ERYTHROCYTE SEDIMENTATION RATE 19 mm/hr (0-30)
--- NOTE | 2019-06-22 01:10 | EKG REPORT ---
SEVERITY:- NORMAL ECG - SINUS RHYTHM : Confirmed by: Lizy Champagne MD 22-Jun-2019 01:10:09
== END ==
LOC: CCC 15:04
DX: B34.9 Viral infection, unspecified (principal); M62.9 Disorder of muscle, unspecified; E03.9 Hypothyroidism, unspecified; R63.5 Abnormal weight gain; R07.89 Other chest pain
CPT/HCPCS: 36415; 80048; 83036; 84443; 85025; 85652; 86200; 86431; 93005; 93010

== ENCOUNTER → 2019-10-10 | Outpatient (CLI) | payer OTHER ==
--- NOTE | 2019-10-10 12:28 | WOMENS IMAGING REPORT ---
EXAM DESCRIPTION: PINK WARRIOR BILATERAL SCREEN IMAGES COMPLETED DATE/TIME: 10/10/2019 9:50 am REASON FOR STUDY: PINK PINK PINK Z12.31 SCREENING MAMMO PINK PINK PINK Z12.31 ENCNTR SCREEN MAMMOGR AM FOR MALIGNANT NEOPLASM OF [place] COMPARISON: 08/10/2016. EXAM PARAMETERS: Standard craniocaudal and mediolateral oblique views of each breast recorded using digital acquisition. Read with the assistance of CAD. .[facility] - [employer] Head Version 9.2 LIMITATIONS: None. FINDINGS: No suspicious masses, suspicious calcifications or architectural distortion. No areas of c oncern. IMPRESSION: NEGATIVE MAMMOGRAM. BIRADS 1 BREAST DENSITY: b. There are scattered areas of fibroglandular density. BIRAD: ASSESSMENT: 1 NEGATIVE RECOMMENDATION: ROUTINE SCREENING COMMENT: The patient has been notified of the results by letter per [facility] requirements. Additional no tification policies are in place for contacting patient with suspicious or incomplete findings. Quality ID #[id number]: The [employer] recommends an annual screening mammogram for women aged 40 years or over. This facility utilizes a reminder system to ensure that all patients receive reminder letters, and/or direct phone calls for appointments. This includes reminders for routine scr eening mammograms, diagnostic mammograms, or other Breast Imaging Interventions when appropriate. Th is patient will be placed in the appropriate reminder system. TECHNICAL DOCUMENTATION: FINDING NUMBER: (1) ASSESSMENT: (1) JOB ID: [id number] 2010 [employer]- All Rights Reserved Reading location - IP/workstation name: [email or web address]
== END ==
LOC: WI 09:05
PROVIDERS: ATTEND Internal Medicine
DX: Z12.31 Encounter for screening mammogram for malignant neoplasm of breast (principal)
CPT/HCPCS: 77067